=== PATIENT | female | born 1955 | race Caucasian/White ===

== ENCOUNTER 2019-11-03 07:10 | Day surgery (SDC) | payer BC ==
[~2019-11-03] VITALS: Ht 162.6 cm; Wt 60.3 kg
[~2019-11-03 07:10] MED LIST: ALENDRONATE SOD70 MG PO; CALCIUM + VITA1 EACH PO; FAMCICLOVIR500 MG PO; FLAX OIL1000 MG PO; GLUCOSAMINE &1 EAC1 PO; LICORICE ROOT1 GM MISC; ZINC50 MG PO
[2019-11-03] MEDS ORDERED: ADVIL LIQUI-GE200 MG PO (08:02)
--- NOTE | 2019-11-03 09:38 | NUR ---
11/03/19 0938 Ellis Parks RESPONDS TO TAP AND VOICE. DENIES NAUSEA OR PAIN. FALLS ASLEEP EASILY.
--- NOTE | 2019-11-03 10:16 | OR ---
[facility] [address], [place] [address] Signed DATE OF OPERATION: 11/03/2019 SURGEON: Edy Du MD PREOPERATIVE DIAGNOSIS: Screening. POSTOPERATIVE DIAGNOSES: 1. Minimal sigmoid diverticulosis. 2. Minimal internal hemorrhoids. 3. A 3 mm polyp at 8 cm. PROCEDURE: Colonoscopy with cold biopsy. ESTIMATED BLOOD LOSS: None. INDICATIONS: Jacob is a 64-year-old female, asked to see me for a followup screening colonoscopy. She discussed her negative colonoscopy back in 2009 while living over in [place], [place]. She has no lower GI complaints. She will use MiraLAX from time to time for constipation. There is no family history of colon cancer or polyps. In the office, I gave her a pamphlet on colonoscopy and we looked at that together along with the risks including, but not limited to gas bloating, crampy abdominal pain, bleeding, perforation requiring surgery, and missed diagnosis. We also discussed the need for IV conscious sedation, she had expressed understanding and wished to proceed. DESCRIPTION OF PROCEDURE: Jacob was taken into our endoscopy suite and placed in the left lateral decubitus position. She was given a total of 6 mg of Versed and 125 mcg of fentanyl to cover the case. A digital rectal exam was performed and this was unremarkable. The adult colonoscope was introduced and advanced under direct visualization of the camera. It took a few minutes and some extra medication to get through the sigmoid colon and eventually into the cecum itself. Her prep was quite good. We could easily see the appendiceal orifice and the ileocecal valve. The scope was slowly withdrawn. We saw few diverticula in the sigmoid colon. They were small to moderate in size, few in number, and scattered about. In the rectum, she had a very tiny 3 mm polyp, which we removed with the help of the cold biopsy forceps. Upon retroflexion of scope, we can see she has minimal internal hemorrhoid tissue. After this, the gas was suctioned out Electronically Signed By: EDY DU MD 11/03/19 1016 PATIENT NAME: JACOB GALLEGOS OPERATIVE REPORT DATE OF : 55 REPORT #: [id number] PHYSICIAN: EDY DU MD PCP: FELICIA ZACARIAS MD REPORT IS CONFIDENTIAL AND NOT TO BE RELEASED WITHOUT AUTHORIZATION [facility] [address] [place] [id number] Signed and the colonoscope removed. Jacob tolerated the procedure quite well. RECOMMENDATIONS: I will see Jacob back in my office in 7 to 14 days to review her biopsy results. Edy Du MD ALB/MODL /[id number] cc: MD Edy Eaton MD Copies: EDY DU MD ~ Electronically Signed By: EDY DU MD 11/03/19 1016 PATIENT NAME: JAOCB GALLEGOS OPERATIVE REPORT DATE OF : 55 REPORT #: [id number] PHYSICIAN: EDY DU MD PCP: FELICIA ZACARIAS MD REPORT IS CONFIDENTIAL AND NOT TO BE RELEASED WITHOUT AUTHORIZATION
--- NOTE | 2019-11-07 10:41 | PATH ---
[facility] [address] [place], [place] [address] Signed SPECIMEN(S): A RECTAL POLYP AT 8 CM SPECIMEN SOURCE: A. RECTAL POLYP AT 8 CM CLINICAL HISTORY: Colonoscopy. Pre: Colon screening. Post: Diverticulosis, rectal polyp. MICROSCOPIC DESCRIPTION: Histologic sections of all submitted blocks are examined by light microscopy. These findings, together with the gross examination, support the pathologic diagnosis. FINAL PATHOLOGIC DIAGNOSIS: Rectum, polyp at 8 cm, polypectomy: - Tubular adenoma. - Negative for high-grade dysplasia or malignancy. NAL:cml:C2NR GROSS DESCRIPTION: The specimen, labeled "Jacob Donovan, 1," and designated on the requisition "rectal polyp 8 cm," is received in formalin and consists of one cummins soft tissue fragment(s) that measure 0.3 cm in greatest dimension. The specimen is entirely submitted in cassette (A1). FB (under the direct supervision of a pathologist) The Gross Description was prepared using a voice recognition system. The report was reviewed for accuracy; however, sound-alike word errors, addition and/or deletions may occur. If there is any question about this report, please contact Client Services. PERFORMING LABORATORY: The technical component was performed by [facility], [address] [place] [id number] (Accounting Instructor: Magaly Bernal MD; CLIA# [id number]). [facility], [address] [address] (CLIA# [id number]). Diagnostician: Italia Hurst MD Pathologist Electronically Signed 11/07/2019 PATIENT NAME: JACOB DONOVAN PATHOLOGY DATE OF : 55 REPORT #: [id number] PHYSICIAN: VALERIA PATHOLOGY PCP: FELICIA ZACARIAS MD REPORT IS CONFIDENTIAL AND NOT TO BE RELEASED WITHOUT AUTHORIZATION [address] [address] Signed Copies: ~ PATIENT NAME: JACOB DONOVAN PATHOLOGY DATE OF : 55 REPORT #: [id number] PHYSICIAN: VALERIA PATHOLOGY PCP: FELICIA ZACARIAS MD REPORT IS CONFIDENTIAL AND NOT TO BE RELEASED WITHOUT AUTHORIZATION
== END 2019-11-03 10:10 | disposition home or self-care (01) ==
LOC: OPS 07:10 → DS 07:10 → OPS 09:00 → DS 09:00 → OPS 10:10
PROVIDERS: Colon & Rectal Surgery
PROC: 0DBP8ZZ Excision of Rectum, Via Natural or Artificial Opening Endoscopic (ICD-10-PCS; principal; 2019-11-03 09:00)
DX: Z12.11 Encounter for screening for malignant neoplasm of colon (principal); D12.8 Benign neoplasm of rectum; K57.30 Diverticulosis of large intestine without perforation or abscess without bleeding; K64.8 Other hemorrhoids; Z79.899 Other long term (current) drug therapy
CPT/HCPCS: 99153; G0500; J0690; J2250; J3010; J7121

== ENCOUNTER 2023-02-19 15:45 | Emergency (ER) | payer MEDICARE, BC ==
[~2023-02-19] VITALS: Ht 167.6 cm; Wt 59.2 kg
[~2023-02-19 15:45] MED LIST changes: +ADVIL LIQUI-GE200 MG PO
[2023-02-19 17:47] LABS: BASOPHILS 0.6 % (0-2); EOSINOPHILS 2.9 % (0-6); HEMATOCRIT 34.7 % (35.0-50.0); HEMOGLOBIN 11.5 g/dL (12.0-18.0); MCH 30.6 (27-36); MCV 92.6 fl (81-99); NEUTROPHILS 62.5 % (39-80); PLATELET COUNT 327 K/uL (140-440); RBC 3.74 M/ul (4.3-5.7); RDW 12.9 (10.5-15.0)
[2023-02-19 18:02] LABS: ALBUMIN 3.7 g/dL (3.4-5.0); ALBUMIN/GLOBULIN RATIO 1.19 (1.1-2.4); ANION GAP 11.2 (7-21); BILIRUBIN, TOTAL 0.3 ng/dL (0.2-1.0); BUN/CREATININE RATIO 10.75 (6.0-28.6); CALCIUM 9.6 mg/dL (8.5-10.1); CREATININE, SERUM 0.93 mg/dL (0.55-1.02); POTASSIUM 4.2 mmol/L (3.5-5.1); PROTEIN, TOTAL 6.8 g/dL (6.4-8.2)
[2023-02-19] MEDS ORDERED: ONDANSETRON ODT8 MG PO (18:46)
[2023-02-19 19:10] VITALS: BP 139/91
== END 2023-02-19 19:10 | disposition home or self-care (01) ==
LOC: ED 15:45
PROVIDERS: Emergency Medicine
DX: H83.09 Labyrinthitis, unspecified ear (principal); Z88.2 Allergy status to sulfonamides; Z91.09 Other allergy status, other than to drugs and biological substances; Z79.899 Other long term (current) drug therapy
CPT/HCPCS: 36415; 80053; 85025; 99284